=== PATIENT | male | born 1990 | race Caucasian/White ===

== ENCOUNTER 2016-06-11 23:41 | Emergency (ER) | payer MEDICAID, OTHER ==
[~2016-06-11] VITALS: Ht 180.3 cm; Wt 105.5 kg
[2016-06-11 23:48] VITALS: Ht 180.3 cm; Wt 105.5 kg
[2016-06-12 03:16] LABS: ADD SCAN DIFF NO
[2016-06-12 03:18] LABS: BASOPHILS % 0.2 % (0.0-2.0); HEMATOCRIT 49.6 % (42.0-52.0); HEMOGLOBIN 16.7 g/dl (14.0-18.0); LYMPHOCYTES # 1.4 10^3/ul (0.8-2.9); LYMPHOCYTES % 8.8 % (15.0-51.0); MEAN CORPUSCULAR HEMOGLOBIN 31.1 pg (29.0-33.0); MEAN CORPUSCULAR HGB CONC 33.7 g/dl (32.0-37.0); MEAN CORPUSCULAR VOLUME 92.4 fl (82.0-101.0); MONOCYTE # 0.9 10^3/ul (0.3-0.9); MONOCYTES % 5.7 % (0.0-11.0); NEUTROPHIL # 13.7 10^3/ul (1.6-7.5); NEUTROPHILS % 83.6 % (39.0-77.0); PLATELET COUNT 392 10^3/UL (140-415); RED BLOOD COUNT 5.37 10^6/ul (4.70-6.10); RED CELL DISTRIBUTION WIDTH 12.4 % (11.5-14.5); WHITE BLOOD COUNT 16.4 10^3/ul (4.8-10.8)
[2016-06-12 03:29] LABS: ALBUMIN 5.1 g/dl (3.3-4.9)
[2016-06-12 03:30] LABS: POTASSIUM 4.8 mmol/L (3.5-5.1)
[2016-06-12] MEDS ORDERED: HYDROCODONE/APAP (5/325) TAB PO ONE (03:30)
[2016-06-12] MEDS ORDERED: TRIMETHOPRIM/SULFAMETHOX (DS) TAB PO ONE (03:30)
[2016-06-12] MEDS ORDERED: CEPHALEXIN 500 MG CAP PO ONE (03:30)
[2016-06-12 03:32] LABS: ALBUMIN/GLOBULIN RATIO 1.37; BILIRUBIN,INDIRECT 0.6 mg/dl (0-1.1); BILIRUBIN,TOTAL 0.6 mg/dl (0.2-1.3); CREATININE 0.79 mg/dl (0.61-1.24); TOTAL PROTEIN 8.8 g/dl (6.1-8.1)
[2016-06-12 03:33] LABS: CALCIUM 9.5 mg/dl (8.4-10.2)
[2016-06-12] MEDS ORDERED: CEPH-443 PO (03:39)
[2016-06-12] MEDS ORDERED: BACTDS PO (03:39)
[2016-06-12] MEDS ORDERED: HYDR-906 PO (03:40)
[2016-06-12] MEDS ORDERED: BEN25 PO (03:45)
--- NOTE | 2016-06-12 04:02 | ERD ---
ER Documentation Chief Complaint Date/Time DATE: 06/12/16 TIME: 03:47 Chief Complaint GEN. BODY RASH X1 MONTH, RX MEDS INEFFECTIVE HPI Patient is a 25-year-old male presented to the emergency department with a generalized body rash 1 month. Patient states that he has been seen by his primary care physician as well as an urgent care for this rash. Patient was recently prescribed a course of steroids and triamcinolone cream 1 week ago. Patient states he finished this medication today. Patient continues to have erythematous scabbed lesions in his groin region, right torso, right abdomen, back. Patient denies any fevers or chills. Patient does state the lesions are itchy in nature. Patient also reports that the lesions are painful. Patient's been taking no pain medication. Patient denies any throat swelling, tongue swelling, lip swelling, chest tightness chest pain, shortness of breath or loss of consciousness. Patient denies any new pets, environments, creams, lotions, foods. Patient does admit to heavily drinking over the last few year. Patient states that he quit 1 week ago. Requesting blood work at this time. Patient does report report history of having chickenpox as a child. Patient does report having on his vaccinations as a child. Patient does admit to recent increase in stress level at work. ROS All systems reviewed and are negative except as per history of present illness. Medications Home Meds Active Scripts Diphenhydramine Hcl* (Benadryl*) 25 Mg Cap, 25 MG PO Q6, #30 CAP Prov:DAYAMI CÁRDENAS-C 06/12/16 Hydrocodone/Acetaminophen ([place] 5-325 Tablet) 1 Each Tablet, 1 TAB PO Q6H Y for PAIN, #10 TAB Prov:DAYAMI CÁRDENAS-C 06/12/16 Sulfamethoxazole-Trimethoprim* (Bactrim* DS) 800-160 Mg Tab, 1 TAB PO BID for 10 Days, TAB Prov:DAYAMI CÁRDENAS-C 06/12/16 Cephalexin* (Keflex*) 500 Mg Capsule, 500 MG PO QID for 10 Days, CAP Prov:DAYAMI CÁRDENAS-C 06/12/16 Allergies Allergies: Coded Allergies: No Known Allergy (Unverified , 06/12/16) PMhx/Soc Medical and Surgical Hx: pt denies Surgical Hx History of Surgery: No Anesthesia Reaction: No Hx Neurological Disorder: No Hx Respiratory Disorders: No Hx Cardiac Disorders: No Hx Psychiatric Problems: No Hx Miscellaneous Medical Probl: Yes (generalized rashx 1 month; no improvement w meds) Hx Alcohol Use: No Hx Substance Use: No Hx Tobacco Use: No Smoking Status: Never smoker FmHx Family History: No diabetes Physical Exam Vitals Vital Signs Date Time Temp Pulse Resp B/P Pulse Ox O2 Delivery O2 Flow Rate FiO2 06/11/16 23:48 97.0 76 18 141/76 98 Physical Exam GENERAL: Well-developed, well-nourished male. Appears in no acute distress. Speaking in full sentences. HEAD: Normocephalic, atraumatic. No lesions noted on the patient's face. EYES: Pupils are equally reactive bilaterally. EOMs grossly intact. No conjunctival erythema. ENT: Moist mucous membranes. No uvula deviation. No kissing tonsils. No throat swelling. No lip swelling. No tongue swelling. No lesions in the patient's mouth. NECK: Supple. No meningismus. Normal range of motion of the neck. LUNG: Clear to auscultation bilaterally. No rhonchi, wheezing, rales or coarse breath sounds. No stridor. HEART: Regular rate and rhythm. No murmurs, rubs or gallops. ABDOMEN: No scars, ecchymosis or rashes noted. Soft, nontender, and nondistended. Positive bowel sounds in all four quadrants. No rebound tenderness , no guarding. (-) McBurney's point tenderness. BACK: No midline tenderness. EXTREMITIES: Equal pulses bilaterally. No peripheral clubbing, cyanosis or edema. No unilateral leg swelling. NEUROLOGIC: Alert and oriented. Moving all four extremities without any difficulty. Normal speech. Steady gait. SKIN: Normal color. Warm and dry. Erythematous, circular, macular, scabbed lesions noted on the patient's right torso, right abdomen, bilateral groin regions. No active bleeding or discharge. Lesions are tender to palpation. Non-blanchable. Result Diagram: 06/12/1631006/12/16 0311 Results 24 hrs Laboratory Tests Test 06/12/16 03:11 White Blood Count 16.410^3/ul Red Blood Count 5.3710^6/ul Hemoglobin 16.7g/dl Hematocrit 49.6% Mean Corpuscular Volume 92.4fl Mean Corpuscular Hemoglobin 31.1pg Mean Corpuscular Hemoglobin Concent 33.7g/dl Red Cell Distribution Width 12.4% Platelet Count 80232^3/UL Mean Platelet Volume 9.0fl Neutrophils % 83.6% Lymphocytes % 8.8% Monocytes % 5.7% Eosinophils % 0.0% Basophils % 0.2% Nucleated Red Blood Cells % 0.0/100WBC Neutrophils # 13.710^3/ul Lymphocytes # 1.410^3/ul Monocytes # 0.910^3/ul Eosinophils # 0.010^3/ul Basophils # 0.010^3/ul Nucleated Red Blood Cells # 0.010^3/ul Sodium Level 141mmol/L Potassium Level 4.8mmol/L Chloride Level 100mmol/L Carbon Dioxide Level 27mmol/L Anion Gap 19 Blood Urea Nitrogen 18mg/dl Creatinine 0.79mg/dl Glucose Level 159mg/dl Calcium Level 9.5mg/dl Total Bilirubin 0.6mg/dl Direct Bilirubin 0.00mg/dl Indirect Bilirubin 0.6mg/dl Aspartate Amino Transf (AST/SGOT) 52IU/L Alanine Aminotransferase (ALT/SGPT) 129IU/L Alkaline Phosphatase 75IU/L Total Protein 8.8g/dl Albumin 5.1g/dl Globulin 3.70g/dl Albumin/Globulin Ratio 1.37 Current Medications Medications (Trade) Dose Ordered Sig/Hannah Route PRN Reason Start Time Stop Time Status Last Admin Dose Admin Acetaminophen/ Hydrocodone Bitart ([place] (5/325)) 1 tab ONCE ONCE PO 06/12/16 03:30 06/12/16 03:31 DC 06/12/16 03:10 Cephalexin (Keflex) 500 mg ONCE ONCE PO 06/12/16 03:30 06/12/16 03:31 DC 06/12/16 03:08 Trimethoprim/ Sulfamethoxazole (Bactrim (Ds)) 1 tab ONCE ONCE PO 06/12/16 03:30 06/12/16 03:31 DC 06/12/16 03:08 Procedures/MDM ED COURSE: The patient was stable throughout ED course. I kept the patient and/or family informed of laboratory and diagnostic imaging results throughout the ED course. A second ED2 mid level provider also examined however a definitive cause of the patient's rash and skin lesions was undeterminable. MEDICAL DECISION MAKING: This is a 25-year-old male with a rash throughout his body for the last 1 month. Patient has been seen by his primary care physician as well as an urgent care physician. Patient is recently prescribed a course of steroids and steroid cream. Patient denies taking any antibiotics. Vital signs were reviewed. Patient was afebrile. Patient denies history of diabetes. Skin exam revealed erythematous, macular, circular scabbed lesions throughout the patient' s body. CBC showed no evidence of severe anemia. Patient was noted to have a white count of 16.4. CMP showed no evidence of electrolyte abnormalities, severe acidosis, alkalosis, renal failure. Patient was noted to have an elevated AST and ALT. The patient's blood work is consistent with transaminitis , likely due to patient's history of alcoholism. Given these findings, the patient's presentation is most consistent with skin lesions of unknown etiology. Given that patient has not tried any antibiotics, I will prescribe the patient a course of Bactrim and Keflex. Patient was given his first dose here in the emergency department. He tolerated this medication well without any adverse reactions. Patient was also given [place] here in the ED for his pain. I have a much lower clinical concern for necrotizing fasciitis , sepsis, gangrene, Bonifacio-Afshin syndrome, toxic epidural necrolysis, irritant contact dermatitis, fungal infection, insect bite, impetigo, dermatitis. Lesions do not appear to be vesicular with active drainage or discharge consistent with herpes zoster or disseminated herpes, however I am unable to rule out any viral causes at this time. I had discussion with the patient and hos mother about following up with a obstetric assistant as soon as possible given ongoing nature of his rash and skin lesion. Patient understands that he will need to have a biopsy to determine the cause of his skin lesions. Unable to rule out any autoimmune disorders at this time including psoriasis. PRESCRIPTIONS: Keflex, Bactrim, Benadryl, prednisone DISCHARGE: At this time, patient is stable for discharge and outpatient management. Patient was given a copy of all blood work obtained today. Patient was also given numerous referrals to obstetric assistant in the area. Patient was advised to contact obstetric assistant tomorrow morning for an appointment as soon as possible. I have advised the patient to avoid any new products, creams or possible allergens. I have advised the patient to avoid scratching the lesions. I have instructed the patient to follow-up with his/her primary care physician in 1-2 days. I have instructed the patient to promptly return to the ER at any time for any new or worsening symptoms including increased pain, fever, redness, swelling, warmth, difficulty breathing or vomiting. The patient and/or family expressed understanding of and agreement with this plan. All questions were answered. Home care instructions were provided. Departure Diagnosis: Primary Impression: Skin lesions Additional Impression: Transaminitis Condition: Stable Patient Instructions: Self-Care for Skin Rashes Referrals: SIDDHARTH FLETCHER MD,AUBREY LANE,MAVERICK CALVO,REBECCA GRIFFITHS,[facility] YOU HAVE RECEIVED A MEDICAL SCREENING EXAM AND THE RESULTS INDICATE THAT YOU DO NOT HAVE A CONDITION THAT REQUIRES URGENT TREATMENT IN THE EMERGENCY DEPARTMENT. FURTHER EVALUATION AND TREATMENT OF YOUR CONDITION CAN WAIT UNTIL YOU ARE SEEN IN YOUR DOCTORS OFFICE WITHIN THE NEXT 1-2 DAYS. IT IS YOUR RESPONSIBILITY TO MAKE AN APPOINTMENT FOR FOLOW-UP CARE. IF YOU HAVE A PRIMARY DOCTOR --you should call your primary doctor and schedule an appointment IF YOU DO NOT HAVE A PRIMARY DOCTOR YOU CAN CALL OUR PHYSICIAN REFERRAL HOTLINE AT IF YOU CAN NOT AFFORD TO SEE A PHYSICIAN YOU CAN CHOSE FROM THE FOLLOWING [facility] [address] [facility]. [facility] [address] [facility] [place]. [facility] [address] [facility]. [facility] [address] [facility]. [facility] [address] [facility]. [facility] [address] [facility] YOU HAVE RECEIVED A MEDICAL SCREENING EXAM AND THE RESULTS INDICATE THAT YOU DO NOT HAVE A CONDITION THAT REQUIRES URGENT TREATMENT IN THE EMERGENCY DEPARTMENT. FURTHER EVALUATION AND TREATMENT OF YOUR CONDITION CAN WAIT UNTIL YOU ARE SEEN IN YOUR DOCTORS OFFICE WITHIN THE NEXT 1-2 DAYS. IT IS YOUR RESPONSIBILITY TO MAKE AN APPOINTMENT FOR FOLOW-UP CARE. IF YOU HAVE A PRIMARY DOCTOR --you should call your primary doctor and schedule and appointment IF YOU DO NOT HAVE A PRIMARY DOCTOR YOU CAN CALL OUR PHYSICIAN REFERRAL HOTLINE AT . IF YOU CAN NOT AFFORD TO SEE A PHYSICIAN YOU CAN CHOSE FROM THE FOLLOWING [facility] INSTITUTIONS: [facility] [address] [place] [address] [facility] [address] [place] [address] [facility] [address] [place] [address] Additional Instructions: Call your primary care doctor TOMORROW for an appointment during the next 1-2 days.See the doctor sooner or return here if your condition worsens before your appointment time. Patient advised to follow-up with a obstetric assistant for further management of his ongoing rash. Patient will need to see obstetric assistant for skin biopsy MELIZA. See referral list. DAYAMI CÁRDENAS PA-C Jun 12, 2016 03:58
== END 2016-06-12 03:53 | disposition home or self-care (01) ==
LOC: FTE 23:41
DX: L98.9 Disorder of the skin and subcutaneous tissue, unspecified (principal); R74.0 Nonspecific elevation of levels of transaminase and lactic acid dehydrogenase [LDH]
CPT/HCPCS: 36415; 80053; 85025; Z7502; Z7610; 99284